=== PATIENT | male | born 1985 | race Caucasian/White ===

== ENCOUNTER 2017-05-14 17:51 | Emergency (ER) | payer OTHER ==
[~2017-05-14 17:51] MED LIST: CIPR-9 PO; CLIN1CAP6 PO; IBUP800T23 PO
[2017-05-14 17:53] VITALS: BP 115/77; PULSE 58; RESP 16; TEMP 99; O2SAT 98
--- NOTE | 2017-05-14 18:47 | PD ---
Physical Exam Time Seen by Provider: 18:45 Narrative 31 y/o male with L 2nd toe pain. Vital signs reviewed. Seen at triage desk. Awaiting bed placement. Data Data Last Documented VS Vital Signs Date Time Temp Pulse Resp B/P Pulse Ox O2 Delivery O2 Flow Rate FiO2 05/14/17 17:53 99.0 58 16 115/77 98 Room Air [facility] Medical Record Reviewed: Yes Supervised Visit with JUNIOR: No Orestes Lovelace May 14, 2017 18:47
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
[2017-05-14] MEDS ORDERED: DICL75TA PO (20:53)
== END 2017-05-14 21:52 | disposition home or self-care (01) ==
LOC: NEPD 17:51
DX: S90.122A Contusion of left lesser toe(s) without damage to nail, initial encounter (principal); F17.200 Nicotine dependence, unspecified, uncomplicated; Z87.81 Personal history of (healed) traumatic fracture; Z87.820 Personal history of traumatic brain injury; Z86.59 Personal history of other mental and behavioral disorders; W20.8XXA Other cause of strike by thrown, projected or falling object, initial encounter
CPT/HCPCS: 73660; 99283

== ENCOUNTER 2018-02-23 12:32 | Emergency (ER) | payer OTHER ==
[~2018-02-23] VITALS: Ht 175.3 cm; Wt 54.0 kg
[~2018-02-23 12:32] MED LIST changes: -CLIN1CAP6 PO; +CLIN300C5 PO; +DICL75TA PO; +IBUP1TAB7 PO; -IBUP800T23 PO
[2018-02-23] MEDS ORDERED: IOHEXOL 350 MG/ML 10 ML VIAL (for RAD DIAG) IVCONTRAST ONE (12:33)
[2018-02-23 12:35] VITALS: BP 112/63; PULSE 66; RESP 18; TEMP 98.2; O2SAT 100
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
[2018-02-23] MEDS ORDERED: SODIUM CHLOR 0.9% 1000 ML INJ 1,000 ML IV SCH (13:46)
[2018-02-23] MEDS ORDERED: SODIUM CHLORIDE 0.9% FLUSH 10 ML FLUSH IVF PRN (14:00)
[2018-02-23] MEDS ORDERED: MORPHINE SULFATE 4 MG/ML INJ IV PUSH ONE ×2 (14:00→16:15)
[2018-02-23] MEDS ORDERED: ceFAZolin 2 GM PREMIX 50 ML IV ONE (14:00)
[2018-02-23 14:25] VITALS: PULSE 78; O2SAT 98
[2018-02-23 14:36] LABS: AUTOMATED NEUTROPHIL # 13.5 TH/MM3 (1.8-7.7); BASOPHIL % 0.3 % (0.0-2.0); EOSINOPHIL # 0.1 TH/MM3 (0-0.4); EOSINOPHIL % 0.6 % (0.0-4.0); HEMATOCRIT 47.4 % (39.0-51.0); HEMOGLOBIN 16.6 GM/DL (13.0-17.0); LYMPH % 7.3 % (9.0-44.0); LYMPHOCYTE # 1.1 TH/MM3 (1.0-4.8); MEAN CELL VOLUME 86.3 FL (80.0-100.0); MEAN CORPUSCULAR HEMOGLOBIN 30.1 PG (27.0-34.0); MEAN CORPUSCULAR HGB CONC 34.9 % (32.0-36.0); MEAN PLATELET VOLUME 7.5 FL (7.0-11.0); MONO % 5.2 % (0.0-8.0); MONOCYTE # 0.8 TH/MM3 (0-0.9); NEUT % 86.6 % (16.0-70.0); PLATELET COUNT 300 TH/MM3 (150-450); RED CELL DISTRIBUTION WIDTH 13.7 % (11.6-17.2); WHITE BLOOD COUNT 15.6 TH/MM3 (4.0-11.0)
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
[2018-02-23 14:40] LABS: BICARBONATE 24.7 MEQ/L (21.0-32.0); CALCIUM 9.2 MG/DL (8.5-10.1); CREATININE 1.14 MG/DL (0.60-1.30)
[2018-02-23 14:45] LABS: PROTHROMBIN TIME - PATIENT 10.3 SEC (9.8-11.6)
[2018-02-23 14:56] VITALS: RESP 18
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
[2018-02-23] MEDS ORDERED: LIDOCAINE HCL 1% PF 30 ML VIAL ONE (16:14)
[2018-02-23] MEDS ORDERED: LIDOCAINE 1%/EPINEPHrine 1:100,000 SOLN 30 ML VIAL ONE (16:58)
[2018-02-23] MEDS ORDERED: CEPH-460 PO (17:14)
[2018-02-23] MEDS ORDERED: HYDR-3516 PO (17:14)
[2018-02-23] MEDS ORDERED: BACI500O9 TOPICAL (17:15)
[2018-02-23] MEDS ORDERED: MUPI2%T TOPICAL (18:18)
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
== END 2018-02-23 19:24 | disposition home or self-care (01) ==
LOC: NEPC 12:32
DX: S02.2XXA Fracture of nasal bones, initial encounter for closed fracture (principal); S52.124A Nondisplaced fracture of head of right radius, initial encounter for closed fracture; S01.21XA Laceration without foreign body of nose, initial encounter; S30.811A Abrasion of abdominal wall, initial encounter; V23.4XXA Motorcycle driver injured in collision with car, pick-up truck or van in traffic accident, initial encounter; F43.10 Post-traumatic stress disorder, unspecified; Z88.0 Allergy status to penicillin
CPT/HCPCS: 12051; 29105; 70450; 70486; 71260; 72125; 73080; 73110; 74177; 80048; 85025; 85610; 85730; 86850; 86900; 86901; 96365; 96375; 96376; 99285; J0690; J2270; J7030; Q9967